=== PATIENT | female | born 1960 | race Caucasian/White ===

== ENCOUNTER 2023-07-28 06:01 | Observation (INO) ==
[~2023-07-28 06:01] MED LIST: Buffered Lidocaine 1% SYRIN 1 ml INTRADERM ONE; Famotidine IV 10 MG/ML 2 ml VIAL (20 mg) IV ONE; Lactated Ringers 1000 ml BAG 1,000 ML IV SCH
[2023-07-28] MEDS ORDERED: Famotidine IV 10 MG/ML 2 ml VIAL (20 mg) ONE (06:22)
[2023-07-28] MEDS ORDERED: Tranexamic Acid 1 GM/100ML BAG 2,000 MG/200 ML BAG IV ONE (06:22)
[2023-07-28] MEDS ORDERED: ceFAZolin 2 GM in NS PREMIX 2 GM/100 ML BAG IVPB ONE (06:22)
[2023-07-28 06:42] LABS: Rapid COVID-19 Molecular Undetected (Undetected)
[2023-07-28] MEDS ORDERED: fentaNYL 100 mcg/2 ml 50 MCG/ML VIAL ONE ×3 (06:56→12:35)
[2023-07-28] MEDS ORDERED: Midazolam 5 mg/5 ml VIAL 1 mg/ml 5 ml VIAL (5 mg) ONE (06:56)
[2023-07-28] MEDS ORDERED: ROPIVACAINE 5 MG/ML 30 ML BTL (0.5%) ONE ×2 (06:56→07:34)
[2023-07-28] MEDS ORDERED: Phenylephrine 40 mcg/mL 10mL (400mcg) SYRINGE ONE (08:04)
[2023-07-28] MEDS ORDERED: Phenylephrine IV 10 MG/ML 1 ml VIAL ONE (08:05)
[2023-07-28] MEDS ORDERED: Bupivacaine-MPF SPINAL 7.5 MG/ML - 2ML AMP ONE (08:29)
[2023-07-28] MEDS ORDERED: Naloxone 0.4 mg VIAL 0.4 mg/ml 1 ml VIAL IV PRN (09:15)
[2023-07-28] MEDS ORDERED: HYDROmorphone 1 MG/1 ML SYRINGE IV PRN (09:15)
[2023-07-28] MEDS ORDERED: Scopolamine 1 mg/72hr PATCH TRANSDERM PRN (09:15)
[2023-07-28] MEDS ORDERED: Lactulose 30 ml UDC PO PRN (09:44)
[2023-07-28] MEDS ORDERED: Morphine 2 MG/ML SYRINGE IV PRN (09:44)
[2023-07-28] MEDS ORDERED: Magnesium Hydroxide LIQ 30 ML UDC PO PRN (09:44)
[2023-07-28] MEDS ORDERED: Propofol 10 MG/ML 20 ML BTL ONE (09:56)
[2023-07-28] MEDS ORDERED: Lactated Ringers 1000 ml BAG 1,000 ML IV SCH (10:00)
[2023-07-28] MEDS ORDERED: Glycopyrrolate IV 0.2 MG/ML 1 ML VIAL ONE (10:17)
[2023-07-28] MEDS ORDERED: Ondansetron 4 mg VIAL 2 MG/ML 2 ml VIAL ONE (10:44)
[2023-07-28] MEDS: fentaNYL 100 mcg/2 ml 50 MCG/ML VIAL IV PRN ×4 (11:09→12:42)
[2023-07-28] MEDS ORDERED: ceFAZolin 1 GM ADVAN 1 GM in NS 0.9% 50 ML 50 ML IVPB SCH (16:00)
[2023-07-28] MEDS ORDERED: Magnesium Hydroxide LIQ 30 ML UDC PO SCH (21:00)
[2023-07-29] MEDS ORDERED: Vitamin THERAPEUTIC TAB PO SCH (09:00)
== END 2023-07-28 17:40 | disposition home or self-care (01) ==
LOC: SSU 06:01 → OR 06:01
PROVIDERS: ADMIT Orthopaedic Surgery Adult Reconstructive Orthopaedic Surgery; ATTEND Orthopaedic Surgery Adult Reconstructive Orthopaedic Surgery